=== PATIENT | female | born 1945 | race Two or more races ===

== ENCOUNTER 2017-08-24 10:09 | Outpatient (CLI) | payer OTHER | END 2017-08-24 10:12 | disposition home or self-care (01) | LOC: SONOGRAMA 10:09 | DX: E04.1 Nontoxic single thyroid nodule (principal) ==

== ENCOUNTER 2022-11-19 10:01 | Outpatient (CLI) | payer OTHER | END 2022-11-19 10:03 | disposition home or self-care (01) | LOC: SONOGRAMA 10:01 | PROVIDERS: ATTEND Pathology Anatomic Pathology & Clinical Pathology | DX: D34 Benign neoplasm of thyroid gland (principal); E04.9 Nontoxic goiter, unspecified ==